=== PATIENT | female | born 2000 | race Caucasian/White ===

== ENCOUNTER 2019-04-09 22:10 | Inpatient (IN) | payer BC ==
[2019-04-09] MEDS ORDERED: Piperacillin/Tazobac ADVAN(*) 3.375 GM in NS 0.9% 100 ML* 100 ML IVPB ONE (22:23)
--- NOTE | 2019-04-09 22:38 | ED ---
Psychiatric Complaint - HPI Summary HPI Summary: This patient is a 18 year old female brought in by EMS and [employer] police as a 941 presenting to [facility] with a chief complaint of depression and SI. Per police , pt has a history of depression and currently taking medications. Per police, the patient made a statement to a friend that she wanted to harm and kill self by jumping out of a window. States "I got really upset and called my friend, then my friend called 911. I told my friend that I didn't want to live anymore. " The patient states she has taken an SSRI since October of last year. She states she no longer wants to harm herself. - History Of Current Complaint Chief Complaint: EDSuicidal Time Seen by Provider: 04/09/19 22:30 Hx Obtained From: Patient Character: Depressed Has Suicidal: Reports: Thoughts, With A Plan - Allergies/Home Medications Allergies/Adverse Reactions: Allergies Allergy/AdvReac Type Severity Reaction Status Date / Time No Known Allergies Allergy Verified 04/09/19 22:40 Home Medications: Home Medications Escitalopram Oxalate [Lexapro] 30 mg PO DAILY 04/10/19 [History Confirmed ] lamoTRIgine [Lamotrigine] 50 mg PO DAILY 04/10/19 [History Confirmed 04/10/19] PMH/Surg Hx/FS Hx/Imm Hx Infectious Disease History: No Infectious Disease History: Denies: Traveled Outside the [place] in Last 30 Days Review of Systems Negative: Fever Positive: Depressed, Other - Suicidal Ideation All Other Systems Reviewed And Are Negative: Yes Physical Exam - Summary Physical Exam Summary: Appearance: Well-appearing, Well-nourished, lying in bed comfortable Skin: Warm, dry, no obvious rash Eyes: sclera anicteric, no conjunctival pallor ENT: mucous membranes moist Neck: deferred Respiratory: No signs of respiratory distress Cardiovascular: Appears well perfused, pulses are nml Abdomen: deferred Musculoskeletal: Moving all 4 extremities without obvious discomfort Neurological: Awake and alert, mentation is normal, speech is fluent and appropriate Psychiatric: affect is normal. Appears mildly depressed. Triage Information Reviewed: Yes Vital Signs On Initial Exam: Initial Vitals Temp Pulse Resp BP Pulse Ox 98.7 F 91 18 126/78 97 04/09/19 22:22 04/09/19 22:22 04/09/19 22:22 04/09/19 22:22 04/09/19 22:22 Vital Signs Reviewed: Yes Diagnostics - Vital Signs Vital Signs Temp Pulse Resp BP Pulse Ox 04/09/19 22:22 98.7 F 91 18 126/78 97 - Laboratory Result Diagrams: 04/10/19 00:10 04/10/19 00:10 Lab Statement: Any lab studies that have been ordered have been reviewed, and results considered in the medical decision making process. Course/Dx - Course Course Of Treatment: This patient is a 18 year old female brought in by EMS and [employer] police as a 941 presenting to [facility] with a chief complaint of depression and SI. Patient medically cleared for [facility] at 2235. Per [facility], they decided to involuntarily admit the patient with unspecified depressive disorder , per Dr. Hamm, Psychiatry. - Differential Dx/Clinical Impression Provider Diagnosis: Major depressive disorder, recurrent, unspecified Discharge ED - Sign-Out/Discharge Documenting (check all that apply): Patient Departure - Admission, per [facility] Patient Received Moderate/Deep Sedation with Procedure: No - Discharge Plan Condition: Guarded Disposition: PSYCHIATRIC FACILITY-[facility] [place] - Billing Disposition and Condition Condition: GUARDED Disposition: Psychiatric Facility [facility] [place] [facility] - Attestation Statements Document Initiated by Scribe: Yes Documenting Scribe: Juni Luke Provider For Whom Gris is Documenting (Include Credential): Vaughn Pino MD Scribe Attestation: Juni Perdomo, scribed for Vaughn Pino MD on 04/10/19 at 1932. Scribe Documentation Reviewed: Yes Provider Attestation: The documentation as recorded by the Juni spain accurately reflects the service I personally performed and the decisions made by Vaughn nuñez MD Status of Scribe Document: Viewed
[2019-04-09 23:27] LABS: Urine Benzodiazepine Screen None Detected (None Detect); Urine Opiates Screen None Detected (None Detect)
[2019-04-10 00:19] LABS: ABS Basophils 0.1 10^3/ul (0-0.2); ABS Eosinophils 0.1 10^3/ul (0-0.6); ABS Lymphocytes 2.3 10^3/ul (1.0-4.8); ABS Monocytes 0.7 10^3/ul (0-0.8); ABS Neutrophils 6.4 10^3/ul (1.5-7.7); Hematocrit 38 % (35-47); Hemoglobin 12.7 g/dL (12.0-16.0); Lymphocyte % 23.9 %; Mean Corpuscular HGB Conc 34 g/dL (31-36); Mean Corpuscular Hemoglobin 30 pg (27-31); Mean Corpuscular Volume 89 fL (80-97); Mean Platelet Volume 9.3 fL (7.4-10.4); Platelet Count 185 10^3/uL (150-450); Red Blood Count 4.25 10^6 /uL (3.70-4.87); Red Cell Distribution Width 14 % (10-15); White Blood Count 9.5 10^3/uL (3.5-10.8)
[2019-04-10 00:36] LABS: ALT 14 U/L (7-52); AST 17 U/L (13-39); Albumin 4.1 g/dL (3.2-5.2); Albumin/Globulin Ratio 1.7 (1-3); Alkaline Phosphatase 83 U/L (34-104); Anion Gap 4 mmol/L (2-11); BUN/Creatinine Ratio 23.6 (8-20); Blood Urea Nitrogen 21 mg/dL (6-24); CO2 Carbon Dioxide 28 mmol/L (22-32); Calcium 9.5 mg/dL (8.6-10.3); Chloride 105 mmol/L (101-111); EGFR African American 98.9 (>60); EGFR Non-African American 81.7 (>60); Globulin 2.4 g/dL (2-4); Glucose 91 mg/dL (70-100); Potassium 4.1 mmol/L (3.5-5.0); Sodium 137 mmol/L (135-145); Total Protein 6.5 g/dL (6.4-8.9)
[2019-04-10 01:23] LABS: Acetaminophen < 15 mcg/mL; Alcohol < 10 mg/dL (<10); Salicylate < 2.50 mg/dL (<30)
[2019-04-10 01:39] LABS: TSH (Thyroid Stimulating Horm) 2.74 mcIU/mL (0.34-5.60)
[2019-04-10] MEDS ORDERED: Al Hydrox/Mg Hydrox/Simet LIQ* 30 ML UDC PO PRN (04:30)
[2019-04-10] MEDS: Multivitamins/Minerals TAB PO SCH (09:49)
[2019-04-10] MEDS: Acetaminophen TAB* 325 MG PO PRN ×2 (09:49→16:25)
[2019-04-10] MEDS ORDERED: Venlafaxine EXT RELEASE CAP* 37.5 MG PO ONE (15:00)
[2019-04-10] MEDS: LORazepam TAB(*) 0.5 MG PO SCH ×2 (16:24→21:43)
--- NOTE | 2019-04-10 16:33 | HP ---
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 CHIEF COMPLAINT: "I thought about jumping out of my window to commit suicide." HISTORY OF PRESENT ILLNESS: Marleny with known history of anxiety since her 5th grade and seeing a therapist for that reason for a long time, has also been seeing a psychiatrist since 2018, who was prescribing her antidepressant and a mood stabilizer. Recently, because of multiple stressors in her life, she got off of all her medications and relapsed on depressive symptoms mainly. She has been feeling sad, down, not having mental and physical energy to do anything, isolating self with a poor self-esteem and self-worth. Then, yesterday, the suicidal thoughts kind of overwhelmed her. She got scared and called her best friend, who called 911 and she was brought to the emergency room by [place] [employer]. During the evaluation today, she reports herself being anxious ever since she was a 5th grader. She also reports that her family had gone through lot of changes, which either caused or worsened her anxiety symptoms and in the recent past there were multiple deaths in her family including her biological dad, grandmother and aunt and so on, which overwhelmed her. On top it, she and her boyfriend decided to separate and break up. Her boyfriend also cut her off of all social media contacts. She also has some concerns about her financial situation as she is mostly supported by her single mother, who has her health related issues she deals with and not doing that well financially. PAST PSYCHIATRIC HISTORY: As mentioned earlier, Marleny was never hospitalized. She started seeing a therapist in her 5th grade years and continued to see the therapist for a while and in fall, she also started seeing a psychiatrist in [facility], Dr. Goezt, who prescribed her Lexapro and later added Abilify. She may have been tried on Wellbutrin also, which she has vague memory of. Both Abilify and Wellbutrin made her jittery and anxious, so she took herself off both; however, continued to take Lexapro until recent past , she may have missed 3 doses. She does not have any psychiatrist or therapist locally here. Marleny reports that when she was taking only Lexapro, her mood swung to hypomania, manifested as racing thoughts, loss of energy, motivation, and she was too happy and wanted to do more than she usually does including some goal-directed activities such as calling people, mostly her boyfriend middle of the night or having sexual relationship with multiple partners. PAST MEDICAL HISTORY: Unremarkable. ALLERGIES: No known drug allergies. FAMILY PSYCHIATRIC HISTORY: Marleny reports that she has 1 older brother and her mother is single as her father from cancer. Mother also is a cancer survivor. She has one of her maternal aunt who was diagnosed with bipolar disorder. 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 She is from [place] and her sources of support is her mother and herself from her savings financially a little tight, but doing fairly well. Just broke up with her boyfriend of couple of years because of them being by thousands of miles. Marleny is here and her boyfriend is in [place]. PHYSICAL EXAMINATION GENERAL: Marleny is an average height, well-built 18-year-old white female, well dressed and well groomed. HEENT: Eyes: PERRLA. EOMI x2. Nonicteric sclerae. ENT: Moist mucous membranes. Good oral hygiene. Ears within normal limits with clean ear canals and intact tympanic membranes. NECK: Supple without any lymphadenopathy or thyromegaly. RESPIRATORY: Equal entry of air bilaterally. No wheezing or crackles appreciated. CARDIOVASCULAR: Normal heart sounds with S1 and S2 only. No murmurs or gallops. ABDOMEN: Soft, nontender. No organomegaly. Bowel sounds positive in all quadrants. MUSCULOSKELETAL: Well formed both extremities with good movement of joints. Positive pulses. NEUROLOGICAL: Alert, awake, and oriented to time, place, and person. Cranial nerves II through XII are grossly intact. No sensory deficits appreciated. MENTAL STATUS EXAMINATION: Appropriately dressed, fairly groomed female with fair personal hygiene. She is alert and oriented to time, place, and person; makes good eye contact. Speech is normal in all spheres. Describes her mood as depressed. Observed affect is restricted, sad, and tearful. Intelligence appears to be average as evidenced by her vocabulary, fund of knowledge, and educational background. Denies any hallucinations, delusions, however, continues to have vague suicidal ideations without any plan at this time. Denies any homicidal ideations. Memory functions appear to be intact in all spheres. Insight and judgment fair to good. SUMMARY: This 18-year-old female with history of anxiety and depression since her 5th grade years appears to be experiencing a severe depressive episode with suicidal ideation and plan. DIAGNOSTIC IMPRESSION: MENTAL HEALTH DIAGNOSES: 1. Major depressive disorder, recurrent, severe, without psychotic features. 2. Unspecified anxiety disorder, rule out generalized anxiety disorder. PHYSICAL HEALTH DIAGNOSIS: None. TREATMENT RECOMMENDATIONS: Marleny will remain hospitalized on behavioral science unit. Her code status will remain full. Supportive milieu, individual and group therapy will be initiated and she will be encouraged to attend all. Multiple treatment options were discussed with Marleny. She is unsure about choosing one over the other and wishes to talk to her mother and she was allowed to do so, and I have a plan to start her on medications that she and her mother prefers. Until then, I will just prescribe her some lorazepam at low doses to alleviate her anxiety and I may have to defer further treatments to her assigned psychiatrist on the unit. [id number]/CPS #: [id number] JOSR
[2019-04-11] MEDS: Multivitamins/Minerals TAB PO SCH (08:44)
[2019-04-11] MEDS: LORazepam TAB(*) 0.5 MG PO SCH ×2 (08:44→15:53)
[2019-04-11] MEDS ORDERED: Venlafaxine EXT RELEASE CAP* 37.5 MG PO SCH (09:00)
[2019-04-11 12:30] VITALS: BP 121/75
[2019-04-11] MEDS ORDERED: LORazepam TAB(*) 0.5 MG PO PRN (15:31)
--- NOTE | 2019-04-11 15:49 | PN ---
Subjective - Subjective Date of Service: 04/11/19 Service Type: 19044 Hosp care 35 min high complexity Subjective: Discussed with Marleny her new diagnosis of bipolar disorder. She describes mood instability that has episodes lasting up to two weeks of hypomania and much longer periods of depression. She also describes significant anxiety that she is unable to address, but that lorazepam has been helpful with. We discuss the inadvisability of taking lorazepam correction and shift to a PRN model of use. She is on board with the idea of a mood stabilizer and is okay with the side effects of lithium that we discussed. She is eager to go home. Objective - General Observations Appearance: Neat Appears Stated Age: Yes Stature: WNL Posture: WNL Eye Contact: Average Behavior/Activity: WNL - Interaction Observations Attitude Towards Examiner: Cooperative, Anxious Stated Mood: Anxious Affect: Full Speech Pattern/Tone: Clear Thought Process: Coherent, Goal Directed Perception: WNL Thought Content: WNL Hallucination Type: None Delusion Type: None - Cognitive Function Orientation: A&O x 4 Level of Consciousness: Awake, Alert, Appropriate Cognition: WNL Estimated Intelligence: Normal Insight: WNL Judgment Within Normal Limits: Yes - Medication Compliance Cooperative with Inpatient Medication Regimen: Yes - Group Participation Participates in Group Activities: Partial Assessment - Assessment Merits Inpatient Hospitalization: For Immediate Safety Inpatient DSM-V Dx: F31.9 Clinical Impression: Marleny is a 18-year-old woman who is a [employer] sophomore who is newly diagnosed with bipolar disorder who comes to the hospital following an emotional episode wherein her prior behaviors for two weeks were pointed out to her and she became suicidal at the thought of how uncharacteristic and damaging they were. She is now feeling much better and would like to return to school. Plan - Plan Treatment Plan: Name: MARLENY RICHARDSON Birthdate: 2000 [id number] Effexor will be stopped as will her previous Lexapro. [place] 300 mg BID will begin. We will look at discharge for tomorrow. Continued Medication Management: Different Medication Medications: Current Medications Acetaminophen (Tylenol Tab*) 650 mg PO Q4H PRN PRN Reason: PAIN; OR TEMP > 101 Last Admin: 04/10/19 16:25 Dose: 650 mg Al Hydrox/Mg Hydrox/Simethicone (Maalox Plus*) 30 ml PO Q4H PRN PRN Reason: INDIGESTION [place] Carbonate ([place] Carbonate Tab*) 300 mg PO BID DONNA Lorazepam (Ativan Tab(*)) 0.5 mg PO BEDTIME DONNA Lorazepam (Ativan Tab(*)) 0.5 mg PO Q6H PRN PRN Reason: ANXIETY Multivitamins/Minerals (Theragran/Minerals Tab*) 1 tab PO DAILY DONNA Last Admin: 04/11/19 08:44 Dose: 1 tab - Discharge Plan Discharge Plan: Outpatient Follow Up Outpatient Program: Counseling/Psych Services at [place]
[2019-04-11] MEDS ORDERED: LORazepam TAB(*) 0.5 MG PO SCH (21:00)
[2019-04-11] MEDS: Lithium Carbonate TAB* 300 MG PO SCH (22:02)
[2019-04-12] MEDS: Multivitamins/Minerals TAB PO SCH (12:35)
[2019-04-12] MEDS: Lithium Carbonate TAB* 300 MG PO SCH (12:35)
--- NOTE | 2019-04-12 19:40 | DS ---
Amended report to enter cosigning physician. DISCHARGE SUMMARY: DATE OF ADMISSION: 04/10/19 DATE OF DISCHARGE: 04/12/19 PROVIDER: Latrice Barnes NP, Psychiatry. SUPERVISING PHYSICIAN: Silverio Mendez MD* (dictated by Latrice Barnes NP). DIAGNOSES: Bipolar disorder, unspecified. CONDITION AT THE TIME OF DISCHARGE: Improved, psychiatrically cleared, stable. Marleny participated in groups and was social with peers. Her mother and her brother are agreeable to her discharge. She has done well here psychiatrically. She tolerated lithium well as well as lorazepam. She will be attending [employer]. MENTAL STATUS EXAM: At the time of discharge, Marleny is calm, cooperative, and makes good eye contact. She is alert and oriented x4. Her grooming is good. Her speech pace is normal. Her thought processes are logical. She is not psychotic or delusional. She denies AH, VH, SI, and HI. Insight and judgment are good. She is willing to follow up and she is urged to see a therapist. DISCHARGE INSTRUCTIONS TO THE PATIENT: A. Medications: 1. Topaz carbonate ER 600 mg at bedtime dispensed 60, 300 mg tabs. 2. Lorazepam 0.5 mg q.6 hours p.r.n. anxiety, dispensed 30, 0.5 mg tabs. B. Diet is regular. C. Activities as tolerated. Marleny is a nonsmoker. There are no studies pending at the time of discharge. D. Followup care. She has appointments at [facility] with Guy Guerrero today , 04/12/19, at 2:30 p.m. on level 7. She is also encouraged to find a primary care provider perhaps through the [facility]. E. Disposition. She is being discharged to her dorm room at [facility] [employer] [facility]. F. Substance abuse followup is not indicated. HOSPITAL COURSE: A. Chief complaint: "I thought about jumping out of my window to commit suicide." Marleny with a known history of anxiety since her fifth grade year and seeing a therapist for that reason for a long time, has also been seeing a psychiatrist since 2018 who was prescribing her antidepressants and a mood stabilizer. Recently because of multiple stressors in her life, she got off all of her medications and relapsed mainly on depressive symptoms. She has been feeling sad, down, not having mental and physical energy to do anything, isolating herself with poor self-esteem and self-worth. Then, yesterday the suicidal thoughts kind of overwhelmed her and she got scared and called her best friend who called 911, and she was brought to the emergency room by [place] [employer]. During the evaluation today, she reports herself being anxious ever since she was a fifth grader. She also reports that her family has gone through lots of changes, which either caused or worsened her anxiety symptoms, and in the recent past, there were multiple deaths in her family including her biological dad, her grandmother, her aunt and so on, which overwhelmed her. On top of that , she and her boyfriend decided to separate and breakup. Her boyfriend also cut her off on all social media contacts. She also has some concerns about her financial situation as she is mostly supported by her single mother who has her own health related issue she deals with and is not doing that well financially. Part B. Psychiatric treatment was rendered: Marleny was admitted to the adult behavioral unit and placed on 15-minute checks for her safety. Marleny did well on the unit. She went to some groups. She interacted with peers well, especially peers her age. Topaz was started. Lamictal and Lexapro were discontinued and Ativan 0.5 t.i.d. was started. The lithium was started with the idea that she has bipolar disorder most obviously typified by the 2-week period she had in the transition between home and school where she was behaving in an energetic , goal-directed way. She had multiple sexual partners. Her friends gave her feedback that she was not acting herself and when she did return to herself, she was surprised, horrified, and ashamed at what she had done. Marleny is eager to leave. She believes that her lack of suicidal thoughts indicates that she is prepared to go. She is eager to start therapy and psychiatrtic treatment outpatient and also would like to continue her relationships with her friends and her family. Her mom and brother were contacted. Her brother came to pick her up. No consults were entered for Marleny. She is much improved. She is indeed no longer suicidal. She seems happy and anxious and would like very much to talk about her anxiety with her new provider. I suspect that once some of these bipolar symptoms are under control , she may no longer feel such anxiety. She is improved. She is future oriented , and she is eager to return to class and school. LATRICE BARNES, [place] [id number]/[facility] #: [id number] JOSR
== END 2019-04-12 12:55 | disposition home or self-care (01) | DRG 753 ==
LOC: ED 22:10 → BSU 04-10 02:38
PROVIDERS: ADMIT Psychiatry & Neurology Psychiatry; ATTEND Psychiatry & Neurology Psychiatry
DX: F31.9 Bipolar disorder, unspecified (principal); R45.851 Suicidal ideations; F41.9 Anxiety disorder, unspecified; Z81.8 Family history of other mental and behavioral disorders; Z80.9 Family history of malignant neoplasm, unspecified
CPT/HCPCS: 36415; 80053; 80307; 80320; 80329; 84443; 85025; 99222; 99284; A9270-GY; G0480